=== PATIENT | female | born 1990 | race Asian ===

== ENCOUNTER 2018-12-20 17:47 | Emergency (ER) | payer OTHER ==
[~2018-12-20] VITALS: Ht 154.9 cm; Wt 90.9 kg
[~2018-12-20 17:47] MED LIST: ALBU17AE27 IH
[2018-12-20 18:07] VITALS: BP 148/89
[2018-12-20] MEDS ORDERED: IBUPROFEN 600 MG TABLET PO ONE (19:30)
== END 2018-12-20 20:32 | disposition home or self-care (01) ==
LOC: EMS 17:48
DX: J02.8 Acute pharyngitis due to other specified organisms (principal); B97.89 Other viral agents as the cause of diseases classified elsewhere; J45.909 Unspecified asthma, uncomplicated; Z79.899 Other long term (current) drug therapy
CPT/HCPCS: 87430

== ENCOUNTER 2019-01-28 00:29 | Emergency (ER) | payer OTHER ==
[~2019-01-28] VITALS: Ht 160 cm; Wt 86.4 kg
[2019-01-28] MEDS ORDERED: KETOROLAC TROMETHAMINE 60 MG/2 ML VIAL IM ONE (02:15)
[2019-01-28] MEDS ORDERED: IBUPROFEN 600 MG TABLET PO ONE (02:30)
[2019-01-28 02:37] VITALS: BP 121/81
== END 2019-01-28 02:38 | disposition home or self-care (01) ==
LOC: EMS 00:29
DX: R07.89 Other chest pain (principal); J45.909 Unspecified asthma, uncomplicated
CPT/HCPCS: 93005

== ENCOUNTER 2019-03-22 20:34 | Emergency (ER) | payer OTHER ==
[~2019-03-22] VITALS: Ht 157.5 cm; Wt 69.5 kg
[2019-03-22] MEDS ORDERED: LIDOCAINE 5% TRANSDERMAL PATCH TD ONE (21:15)
[2019-03-22 21:27] LABS: BASOPHILS % (AUTO) 0.9 % (0.0-2.0); EOSINOPHILS % (AUTO) 2.2 % (1.0-6.0); HEMATOCRIT 39.6 % (36-46); LYMPHOCYTES # (AUTO) 3.6 K/uL (1.0-4.8); LYMPHOCYTES % (AUTO) 33.3 % (22.0-44.0); MEAN CORPUSCULAR HEMOGLOBIN 28.7 pg (26.0-34.0); MEAN CORPUSCULAR HGB CONC 32.9 G/dL (31.0-37.0); MEAN CORPUSCULAR VOLUME 87 fL (80-100); MONOCYTES # (AUTO) 0.5 K/uL (0.1-1.0); MONOCYTES % (AUTO) 4.3 % (2.0-9.0); NEUTROPHILS # (AUTO) 6.4 K/uL (1.8-7.7); NEUTROPHILS % (AUTO) 59.3 % (40.0-70.0); PLATELET COUNT (AUTO) 294 K/uL (150-450); RED BLOOD CELL COUNT(AUTO) 4.54 MIL/uL (4.00-5.20)
[2019-03-22 21:38] LABS: ANION GAP 9 mmol/L (8-16); CALCIUM, TOTAL 9.3 mg/dL (8.8-10.5); CARBON DIOXIDE 26 mmol/L (22-29); CHLORIDE 103 mmol/L (98-107); CREATININE 0.66 mg/dL (0.60-1.30); GLOMERULAR FILTR. RATE CALC > 60 mL/min (>60); GLUCOSE,RANDOM 113 mg/dL (70-110); POTASSIUM 3.5 mmol/L (3.5-5.1); SODIUM SERUM 138 mmol/L (136-145); UREA NITROGEN, BLOOD 12 mg/dL (7-18)
[2019-03-22 21:39] LABS: APPEARANCE,URINE CLOUDY (CLEAR); BILIRUBIN,URINE NEGATIVE (NEGATIVE); GLUCOSE, URINE (UA) NEGATIVE (NEGATIVE); KETONES,URINE NEGATIVE (NEGATIVE); LEUKOCYTE ESTERASE ,URINE TRACE (NEGATIVE); NITRATE,URINE NEGATIVE (NEGATIVE); OCCULT BLOOD,URINE NEGATIVE (NEGATIVE); PROTEIN,URINE NEGATIVE (NEGATIVE)
[2019-03-22 21:48] LABS: RBC,URINE 0-2 /HPF (0-2); SQUAMOUS EPITHELIAL CELL,UR Moderate /LPF (None Seen)
[2019-03-22 21:52] LABS: ALANINE AMINOTRANSFERASE 19 U/L (12-78); ALBUMIN 3.5 g/dL (3.4-5.0); ALKALINE PHOSPHATASE 111 U/L (46-116); ASPARTATE AMINOTRANSFERASE 16 U/L (15-37); BILIRUBIN,TOTAL 0.2 mg/dL (0.1-1.0); HCG,QUANTITATIVE < 1 mIU/mL (0-6); LIPASE 125 U/L (73-393); TOTAL PROTEIN, SERUM 7.8 g/dL (6.4-8.2)
[2019-03-22] MEDS ORDERED: IBUPROFEN 600 MG TABLET PO ONE (22:00)
[2019-03-22 22:01] LABS: WBC,URINE 0-2 /HPF (0-5)
[2019-03-22 22:03] LABS: AMORPHOUS SEDIMENT,UR Few /LPF (None Seen); BACTERIA,URINE None Seen /HPF (None Seen)
[2019-03-22 22:13] VITALS: BP 138/84
== END 2019-03-22 22:42 | disposition home or self-care (01) ==
LOC: EMS 20:36
DX: R10.84 Generalized abdominal pain (principal); M54.9 Dorsalgia, unspecified; J45.909 Unspecified asthma, uncomplicated; Z79.899 Other long term (current) drug therapy

== ENCOUNTER 2022-06-30 15:02 | Emergency (ER) | payer OTHER ==
[~2022-06-30] VITALS: Ht 160 cm; Wt 84.1 kg
[2022-06-30] MEDS ORDERED: ONDANSETRON HCL 4 MG/2 ML VIAL IVP ONE (16:00)
[2022-06-30] MEDS ORDERED: ACETAMINOPHEN 500 MG TABLET PO ONE (16:00)
[2022-06-30] MEDS ORDERED: SODIUM CHLORIDE 0.9% 1,000 ML IV ONE (16:00)
[2022-06-30] MEDS ORDERED: DIPHENOXYLATE/ATROP 2.5-0.025 MG TABLET PO ONE (16:00)
[2022-06-30 16:21] LABS: HEMATOCRIT 39.4 % (36-46); MEAN CORPUSCULAR HEMOGLOBIN 29.8 pg (26.0-34.0); MEAN CORPUSCULAR HGB CONC 33.1 G/dL (31.0-37.0); MEAN CORPUSCULAR VOLUME 90 fL (80-100); PLATELET COUNT (AUTO) 303 K/uL (150-450); RED BLOOD CELL COUNT(AUTO) 4.37 MIL/uL (4.00-5.20); RED CELL DISTRIBUTION WIDTH 13.4 % (11.5-14.5)
[2022-06-30] MEDS ORDERED: ONDANSETRON HCL 4 MG TABLET PO ONE (16:30)
[2022-06-30 16:43] LABS: ANION GAP 6 mmol/L (8-16); CALCIUM, TOTAL 9.1 mg/dL (8.8-10.5); CARBON DIOXIDE 28 mmol/L (22-29); CHLORIDE 99 mmol/L (98-107); CREATININE 0.78 mg/dL (0.60-1.30); GLOMERULAR FILTR. RATE CALC > 60 mL/min (>60); GLUCOSE,RANDOM 112 mg/dL (70-110); POTASSIUM 3.7 mmol/L (3.5-5.1); SODIUM SERUM 133 mmol/L (136-145); UREA NITROGEN, BLOOD 7 mg/dL (7-18)
[2022-06-30 16:51] LABS: ALANINE AMINOTRANSFERASE 17 U/L (12-78); ALBUMIN 3.2 g/dL (3.4-5.0); ALKALINE PHOSPHATASE 78 U/L (46-116); ASPARTATE AMINOTRANSFERASE 12 U/L (15-37); BILIRUBIN,TOTAL 0.4 mg/dL (0.1-1.0); LIPASE 68 U/L (73-393); TOTAL PROTEIN, SERUM 7.9 g/dL (6.4-8.2)
[2022-06-30 17:00] LABS: BAND NEUTROPHILS % (MANUAL) 18 % (0-5); LYMPHOCYTES % (MANUAL) 7 % (22-44); MONOCYTES % (MANUAL) 1 % (2-9); SEGMENTED NEUTROPHILS % 74 % (40-70)
[2022-06-30 17:21] VITALS: BP 136/74
[2022-06-30] MEDS ORDERED: BACTDSB PO (17:22)
[2022-06-30] MEDS ORDERED: DIPH-654 PO (17:22)
[2022-06-30] MEDS ORDERED: ONDA-104 PO (17:22)
[2022-06-30] MEDS ORDERED: ACET-66 PO (17:22)
== END 2022-06-30 17:46 | disposition home or self-care (01) ==
LOC: EMS 15:08
DX: K52.9 Noninfective gastroenteritis and colitis, unspecified (principal); F10.20 Alcohol dependence, uncomplicated; J45.909 Unspecified asthma, uncomplicated
CPT/HCPCS: 99284; 80053; 83690; 84703; 85025; 36415; J2405; Q0162; J7030

== ENCOUNTER 2023-12-08 09:30 | Emergency (ER) | payer OTHER ==
[~2023-12-08] VITALS: Ht 154.9 cm; Wt 104.5 kg
[~2023-12-08 09:30] MED LIST changes: +ACET-66 PO; -ALBU17AE27 IH; +BACTDSB PO; +DIPH-1130 PO; +ONDA-104 PO
[2023-12-08 09:33] VITALS: BP 127/88; PULSE 78; RESP 18; TEMP 98.5
[2023-12-08] MEDS: ACETAMINOPHEN/CODEINE 300-30 MG TABLET PO ONE (11:54)
[2023-12-08] MEDS: KETOROLAC TROMETHAMINE 60 MG/2 ML VIAL IM ONE (11:54)
[2023-12-08] MEDS: METHOCARBAMOL 500 MG TABLET PO ONE (11:54)
[2023-12-08] MEDS ORDERED: IBUP-1554 PO (12:09)
[2023-12-08] MEDS ORDERED: ACET-2080 PO (12:10)
[2023-12-08] MEDS ORDERED: METH-659 PO (12:10)
== END 2023-12-08 12:28 | disposition home or self-care (01) ==
LOC: EMS 09:31
DX: S13.4XXA Sprain of ligaments of cervical spine, initial encounter (principal); S29.012A Strain of muscle and tendon of back wall of thorax, initial encounter; S30.1XXA Contusion of abdominal wall, initial encounter; J45.909 Unspecified asthma, uncomplicated; V89.2XXA Person injured in unspecified motor-vehicle accident, traffic, initial encounter; Y93.89 Activity, other specified; Y92.89 Other specified places as the place of occurrence of the external cause; Y99.8 Other external cause status
CPT/HCPCS: 99284; 71045; 84703; 72040; 72070; 72100; J1885